=== PATIENT | female | born 2000 | race Hispanic/Latino ===

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

== ENCOUNTER 2019-06-07 22:14 | Observation (INO) | payer MEDICAID ==
[~2019-06-07] VITALS: Ht 157.5 cm; Wt 77.1 kg
[~2019-06-07 22:14] MED LIST: PREN-94 PO
[2019-06-07] MEDS ORDERED: LACTATED RINGERS 1000ML 1,000 ML IV PRN (22:24)
[2019-06-07 22:46] LABS: APPEARANCE,URINE Cloudy (CLEAR); BILIRUBIN,URINE Negative (NEGATIVE); COLOR,URINE Yellow (YELLOW); GLUCOSE, URINE (UA) Negative (NEGATIVE); KETONES,URINE Negative (NEGATIVE); LEUKOCYTE ESTERASE ,URINE Moderate (NEGATIVE); NITRATE,URINE Negative (NEGATIVE); OCCULT BLOOD,URINE Negative (NEGATIVE); PH,URINE 6.5 (5.0-8.0); PROTEIN,URINE Trace mg/dL (NEGATIVE)
[2019-06-07] MEDS: LACTATED RINGERS 1000ML 1,000 ML IV ONE (22:58)
[2019-06-07 23:14] LABS: AMORPHOUS SEDIMENT,UR Few /LPF (None Seen); BACTERIA,URINE Rare /HPF (None Seen); CALCIUM OXALATE CRYSTALS,UR Rare /LPF (None Seen); RBC,URINE None Seen /HPF (0-1); SQUAMOUS EPITHELIAL CELL,UR Many /HPF (0-2)
== END 2019-06-07 23:35 | disposition home or self-care (01) ==
LOC: EDH 22:14 → LDH 22:15
PROVIDERS: ADMIT Obstetrics & Gynecology; ATTEND Obstetrics & Gynecology
DX: O62.9 Abnormality of forces of labor, unspecified (principal); Z3A.23 23 weeks gestation of pregnancy
CPT/HCPCS: 81001; 99284; G0378; J7120; 96360

== ENCOUNTER 2019-09-08 05:53 | Observation (INO) | payer MEDICAID ==
[2019-09-08 07:08] LABS: APPEARANCE,URINE Clear (CLEAR); BILIRUBIN,URINE Negative (NEGATIVE); COLOR,URINE Yellow (YELLOW); GLUCOSE, URINE (UA) Negative (NEGATIVE); KETONES,URINE 15 mg/dL (NEGATIVE); LEUKOCYTE ESTERASE ,URINE Large (NEGATIVE); NITRATE,URINE Negative (NEGATIVE); OCCULT BLOOD,URINE Negative (NEGATIVE); PROTEIN,URINE Negative (NEGATIVE); UROBILINOGEN,URINE 0.2 mg/dL (0.2-1.0)
[2019-09-08 07:35] LABS: BACTERIA,URINE Few /HPF (None Seen); MUCUS,URINE Rare LPF (None Seen); RBC,URINE 0-1 /HPF (0-1); SQUAMOUS EPITHELIAL CELL,UR Rare /HPF (0-2)
[2019-09-08] MEDS ORDERED: CEFTRIAXONE SODIUM 1 GM IVP SCH (08:30)
[2019-09-08] MEDS ORDERED: LACTATED RINGERS 1000ML IV SCH (08:30)
[2019-09-08 08:40] LABS: AMPHET/METH SCREEN,URINE NEGATIVE (NEGATIVE); BARBITURATE SCREEN, URINE NEGATIVE (NEGATIVE); BENZODIAZEPINES SCREEN,URINE NEGATIVE (NEGATIVE); CANNABINOID SCREEN,URINE NEGATIVE (NEGATIVE); COCAINE SCREEN,URINE NEGATIVE (NEGATIVE); OPIATE SCREEN,URINE NEGATIVE (NEGATIVE); PHENCYCLIDINE SCREEN,URINE NEGATIVE (NEGATIVE)
[2019-09-08] MEDS ORDERED: ROPIVACAINE 0.2% 100ML VIAL 100 ML EP SCH (09:00)
[2019-09-08] MEDS ORDERED: EPHEDRINE SULFATE 50 MG/ML AMPULE IVP PRN (09:00)
[2019-09-08] MEDS ORDERED: LACTATED RINGERS 500 ML 500 ML IV PRN (09:00)
[2019-09-08] MEDS ORDERED: NALOXONE HCL 0.4 MG/1 ML ML IV PRN (09:00)
== END 2019-09-08 10:35 | disposition home or self-care (01) ==
LOC: EDH 05:53 → LDH 05:54
PROVIDERS: ADMIT Obstetrics & Gynecology; ATTEND Obstetrics & Gynecology
DX: O26.893 Other specified pregnancy related conditions, third trimester (principal); M54.9 Dorsalgia, unspecified; Z3A.37 37 weeks gestation of pregnancy
CPT/HCPCS: 80305; 81001; 87088; 96374; 99284; G0378 ×4; J0696; J7120 ×2; 96360; 96361

== ENCOUNTER 2019-09-13 02:13 | Observation (INO) | payer MEDICAID ==
[~2019-09-13] VITALS: Ht 160 cm; Wt 90.3 kg
[2019-09-13 02:31] VITALS: BP 124/50
[2019-09-13] MEDS ORDERED: LACTATED RINGERS 1000ML IV ONE (02:31)
[2019-09-13 02:52] LABS: APPEARANCE,URINE Clear (CLEAR); BILIRUBIN,URINE Negative (NEGATIVE); COLOR,URINE Yellow (YELLOW); GLUCOSE, URINE (UA) Negative (NEGATIVE); KETONES,URINE Negative (NEGATIVE); LEUKOCYTE ESTERASE ,URINE Moderate (NEGATIVE); NITRATE,URINE Negative (NEGATIVE); OCCULT BLOOD,URINE Negative (NEGATIVE); PROTEIN,URINE Negative (NEGATIVE)
[2019-09-13 02:59] LABS: AMPHET/METH SCREEN,URINE NEGATIVE (NEGATIVE); BARBITURATE SCREEN, URINE NEGATIVE (NEGATIVE); BENZODIAZEPINES SCREEN,URINE NEGATIVE (NEGATIVE); CANNABINOID SCREEN,URINE NEGATIVE (NEGATIVE); COCAINE SCREEN,URINE NEGATIVE (NEGATIVE); OPIATE SCREEN,URINE NEGATIVE (NEGATIVE); PHENCYCLIDINE SCREEN,URINE NEGATIVE (NEGATIVE)
[2019-09-13 03:14] LABS: BACTERIA,URINE Few /HPF (None Seen); RBC,URINE 0-1 /HPF (0-1)
== END 2019-09-13 04:55 | disposition home or self-care (01) ==
LOC: EDH 02:13 → LDH 02:14
PROVIDERS: ADMIT Internal Medicine; ATTEND Internal Medicine
DX: O60.03 Preterm labor without delivery, third trimester (principal); O62.9 Abnormality of forces of labor, unspecified; Z3A.38 38 weeks gestation of pregnancy
CPT/HCPCS: 80305; 81001; 87088; 99284; G0378 ×2; J7120; 96360; 96361

== ENCOUNTER 2023-12-19 21:38 | Observation (INO) | payer MEDICAID ==
[~2023-12-19] VITALS: Ht 160 cm; Wt 86.7 kg
[2023-12-19 21:41] VITALS: BP 136/71; PULSE 91; RESP 20
[2023-12-19 22:13] LABS: APPEARANCE,URINE CLEAR (CLEAR); BILIRUBIN,URINE NEGATIVE (NEGATIVE); COLOR,URINE LIGHT-YELLOW (YELLOW); GLUCOSE, URINE (UA) NEGATIVE (NEGATIVE); KETONES,URINE NEGATIVE (NEGATIVE); LEUKOCYTE ESTERASE ,URINE 75 Leu/uL (NEGATIVE); NITRATE,URINE NEGATIVE (NEGATIVE); PH,URINE 6.5 (5.0-8.0); PROTEIN,URINE NEGATIVE (NEGATIVE); UROBILINOGEN,URINE 0.2 mg/dL (0.2-1.0)
[2023-12-19 22:14] LABS: ADD UA MICROSCOPIC YES
[2023-12-19 22:17] LABS: MUCUS,URINE RARE LPF (None Seen); SQUAMOUS EPITHELIAL CELL,UR RARE /HPF (0-2)
[2023-12-19] MEDS: LACTATED RINGERS 1000ML 1,000 ML IV SCH (23:30)
[2023-12-20] MEDS ORDERED: LACTATED RINGERS 1000ML 1,000 ML IV SCH (00:30)
== END 2023-12-19 23:36 | disposition home or self-care (01) ==
LOC: EDH 21:38 → LDH 21:55
PROVIDERS: ADMIT Obstetrics & Gynecology; ATTEND Obstetrics & Gynecology
DX: O62.9 Abnormality of forces of labor, unspecified (principal); Z3A.38 38 weeks gestation of pregnancy
CPT/HCPCS: 96360; 87086; 81001; G0378 ×2; G0379; J7120

== ENCOUNTER 2023-12-28 16:32 | Inpatient (IN) | payer MEDICAID ==
[~2023-12-28] VITALS: Ht 157.5 cm; Wt 85.3 kg
[2023-12-28 17:06] LABS: ADD UA MICROSCOPIC YES; APPEARANCE,URINE CLOUDY (CLEAR); BILIRUBIN,URINE NEGATIVE (NEGATIVE); COLOR,URINE YELLOW (YELLOW); GLUCOSE, URINE (UA) NEGATIVE (NEGATIVE); KETONES,URINE 5 mg/dL (NEGATIVE); LEUKOCYTE ESTERASE ,URINE 500 Leu/uL (NEGATIVE); NITRATE,URINE NEGATIVE (NEGATIVE); OCCULT BLOOD,URINE MODERATE (NEGATIVE); PH,URINE 6.5 (5.0-8.0); PROTEIN,URINE 30 mg/dL (NEGATIVE)
[2023-12-28 17:08] LABS: HEMATOCRIT 34.2 % (36-48); MEAN CORPUSCULAR HEMOGLOBIN 27.6 pg (27.0-33.0); MEAN CORPUSCULAR HGB CONC 31.3 g/dL (32.0-36.0); MEAN CORPUSCULAR VOLUME 88.1 fL (79-99); RED BLOOD CELL COUNT(AUTO) 3.88 MIL/uL (4.00-5.50); RED CELL DISTRIBUTION WIDTH 14.1 % (11.0-15.5); WHITE BLOOD COUNT (AUTO) 9.1 K/uL (4.8-10.8)
[2023-12-28 17:09] LABS: BACTERIA,URINE RARE /HPF (None Seen); MUCUS,URINE RARE LPF (None Seen); SQUAMOUS EPITHELIAL CELL,UR FEW /HPF (0-2); WBC,URINE 26-50 /HPF (0-1)
[2023-12-28] MEDS: LACTATED RINGERS 1000ML 1,000 ML IV PRN (17:39)
[2023-12-28] MEDS: PROMETHAZINE HCL 25 MG/ML 1ML AMPULE IM ONE ×2 (18:22→18:46)
[2023-12-28] MEDS: MEPERIDINE-PF 50 MG/ML SYG IVP ONE (18:22)
[2023-12-28] MEDS: MEPERIDINE-PF 50 MG/ML SYG ONE (18:46)
[2023-12-28] MEDS: OXYTOCIN-LR 30 UNITS/500ML 500 ML IV SCH ×2 (20:00→21:23)
[2023-12-28] MEDS ORDERED: LIDOCAINE HCL 1% 10 ML VIAL ONE (21:05)
[2023-12-28] MEDS ORDERED: LANOLIN 30GM OINTMENT TP PRN (22:00)
[2023-12-28] MEDS ORDERED: BENZOCAINE/LANOLIN/ALOE VERA 60 ML AEROSOL TP PRN (22:00)
[2023-12-28] MEDS ORDERED: acetaMINOPHEN WITH coDEINE 1 TAB TAB PO PRN (22:00)
[2023-12-28] MEDS ORDERED: acetaMINOPHEN 325 MG TAB PO PRN (22:00)
[2023-12-28] MEDS ORDERED: WITCH HAZEL 1 PAD TP PRN (22:00)
[2023-12-28 23:20] VITALS: BP 137/76; PULSE 89; RESP 20; TEMP 98.5
[2023-12-29 03:40] VITALS: BP 134/55; PULSE 70; RESP 20; TEMP 98.4
[2023-12-29] MEDS: DIPH,PERTUSS(ACELL),TET VAC/PF 0.5 ML VIAL IM PRN (06:23)
[2023-12-29 06:36] LABS: HEMATOCRIT 30.8 % (36-48); MEAN CORPUSCULAR HEMOGLOBIN 26.9 pg (27.0-33.0); MEAN CORPUSCULAR HGB CONC 30.8 g/dL (32.0-36.0); MEAN CORPUSCULAR VOLUME 87.3 fL (79-99); PLATELET COUNT (AUTO) 245 K/uL (130-400); RED BLOOD CELL COUNT(AUTO) 3.53 MIL/uL (4.00-5.50); RED CELL DISTRIBUTION WIDTH 14.2 % (11.0-15.5); WHITE BLOOD COUNT (AUTO) 10.2 K/uL (4.8-10.8)
[2023-12-29 07:15] VITALS: BP 113/52; PULSE 66; RESP 18; TEMP 98.1
[2023-12-29] MEDS: doCUSate SODIUM 100 MG CAP PO SCH (09:26)
[2023-12-29] MEDS: IBUPROFEN 600 MG TABLET PO PRN (09:27)
[2023-12-29] MEDS: guaiFENesin-DM 200/20MG 10ML PO PRN (10:14)
[2023-12-29 11:20] VITALS: BP 122/57; PULSE 60; RESP 20; TEMP 98
[2023-12-29 15:15] VITALS: BP 127/74; PULSE 74; RESP 20; TEMP 97.9
[2023-12-29 19:42] VITALS: BP 134/75; PULSE 76; RESP 18; TEMP 98.1
[2023-12-29 23:20] VITALS: BP 144/75; PULSE 77; RESP 18; TEMP 98.1
[2023-12-30 03:53] VITALS: BP 141/66; PULSE 74; RESP 18; TEMP 98.4
[2023-12-30 08:10] VITALS: BP 134/65; PULSE 65; RESP 18; TEMP 97.5
[2023-12-30 12:08] VITALS: BP 133/78; PULSE 74; RESP 17; TEMP 97.6
== END 2023-12-30 14:27 | disposition home or self-care (01) | DRG 560 ==
LOC: EDH 16:32 → LDH 16:33 → OBSVTOIN 16:33 → WSH 23:22
PROVIDERS: ADMIT Obstetrics & Gynecology; ATTEND Obstetrics & Gynecology
PROC: 10E0XZZ Delivery of Products of Conception, External Approach (ICD-10-PCS; principal; 2023-12-28)
PROC: 10907ZC Drainage of Amniotic Fluid, Therapeutic from Products of Conception, Via Natural or Artificial Opening (ICD-10-PCS; 2023-12-28)
DX: O80 Encounter for full-term uncomplicated delivery (principal); Z37.0 Single live birth; Z3A.39 39 weeks gestation of pregnancy
CPT/HCPCS: 36415; 81001; 85027; 86592; 86850; 86900; 86901; 87086; 87340; 90715; G0378; J2175; J2550; J3490

== ENCOUNTER 2024-09-06 21:55 | Emergency (ER) | payer MEDICAID ==
[~2024-09-06] VITALS: Ht 160 cm; Wt 68.0 kg
--- NOTE | 2024-09-06 21:57 | NUR ---
UA CUP PROVIDED
[2024-09-06 22:19] LABS: BASOPHILS # (AUTO) 0.07 K/uL (0.00-0.20); BASOPHILS % (AUTO) 0.6 % (0.0-5.0); EOSINOPHILS # (AUTO) 0.12 K/uL (0.00-0.70); HEMATOCRIT 37.6 % (36-48); IMMATURE GRANULOCYTE ABSOLUTE 0.04 K/uL (0-1); LYMPHOCYTES # (AUTO) 2.9 K/uL (1.0-4.8); LYMPHOCYTES % (AUTO) 23.6 % (21.0-51.0); MEAN CORPUSCULAR HEMOGLOBIN 31.5 pg (27.0-33.0); MEAN CORPUSCULAR HGB CONC 34.3 g/dL (32.0-36.0); MEAN CORPUSCULAR VOLUME 91.7 fL (79-99); MONOCYTES # (AUTO) 0.7 K/uL (0.1-1.0); MONOCYTES % (AUTO) 5.8 % (3.0-13.0); NEUTROPHILS # (AUTO) 8.6 K/uL (1.8-7.7); NEUTROPHILS % (AUTO) 68.7 % (40.0-77.0); PLATELET COUNT (AUTO) 391 K/uL (130-400); RED CELL DISTRIBUTION WIDTH 12.7 % (11.0-15.5); WHITE BLOOD COUNT (AUTO) 12.5 K/uL (4.8-10.8)
[2024-09-06 22:27] LABS: CREATININE 0.5 mg/dL (0.5-1.0); POTASSIUM 4.2 mmol/L (3.5-5.1)
--- NOTE | 2024-09-06 22:31 | ERN ---
ED Note History of Present Illness Stated Complaint: ABD PAIN, VOMITING, LMP 07/05/24 Chief Complaint: Abdominal Pain Time Seen by MD: 21:57 Time Seen by Midlevel: 22:00 Dictation: 24-year-old female coming in with complaints of vomiting for three days in lower abdominal pain. Patient denies having any fever, diarrhea, hematuria. Patient states LMP is 07/05/2024, states she does have possibly be but has not verified and has been taking it at home test. Denies having any vaginal bleeding or vaginal discharge. Allergies: Coded Allergies: No Known Drug Allergies (Unverified Allergy, Unknown, 12/19/23) Home Meds Reported Medications #103/Iron Fumarate/FA ( Tablet) 1 Each Tablet, 1 EACH PO DAILY, TAB 09/28/18 Past Medical History Past Medical History: No Pertinent History Surgical History: None LMP: Jul 05, 2024 : 6 Para: 6 Aborts: 0 Review of System Dictation Constitutional: Negative for fever,chills, and weight loss Eyes: Negative for injury, pain,redness, and discharge ENT: Negative for injury,pain or swelling Cardiovascular: Negative for chest pain, palpitations, and edema Respiratory: Negative for shortness of breath, cough, and wheezing, Abdomen/GI: Complaining of generalized abdominal pain, nausea and vomiting Back: Negative for injury and pain : Negative for injury, bleeding and discharge MS/Extremity: Negative for injury and deformity Skin: Negative for rash, and discoloration Neuro: Negative for headache, weakness, numbness, tingling, and seizure Psych: Negative for suicide ideation, homicidal ideation, and hallucinations Review of Systems: was completed Initial Vital Sign VS Vital Signs Date Time Temp Pulse Resp B/P (MAP) Pulse Ox O2 Delivery O2 Flow Rate FiO2 09/06/24 21:57 99.0 74 16 128/82 100 Room Air 09/06/24 22:14 0 21 Physical Exam Dictation General: awake, alert, NAD Head/Face: Normocephalic, atraumatic Eyes: PERRL, EOMI, vision at baseline ENT: oral cavity clear, TMs clear, no signs of infection Neck: Trachea midline, supple, no nuchal rigidity Cardiovascular: RRR, normal S1/S2, No MRGs, no JVD Respiratory: CTAB, no respiratory distress, No rales or wheezes Abdomen: Soft, non-tender, non-distended, normal bowel sounds, no guarding or rebound. Skin: Warm, dry, normal turgor, no rash MS/Extremity: Pulses equal, no cyanosis, neurovascular intact, FROM Neuro: COAx4, GCS 15, strength 5/5, CN 2-12 intact, normal cerebellar exam, normal gait, Psych: Normal behavior, mood, and affect normal Results (Laboratory/Radiology) Laboratory/Radiology Laboratory Tests Test 09/06/24 22:04 09/06/24 22:06 White Blood Count 12.5 K/uL (4.8-10.8) H Red Blood Count 4.10 MIL/uL (4.00-5.50) Hemoglobin 12.9 g/dL (12.0-16.0) Hematocrit 37.6 % (36-48) Mean Corpuscular Volume 91.7 fL (79-99) Mean Corpuscular Hemoglobin 31.5 pg (27.0-33.0) Mean Corpuscular Hemoglobin Concent 34.3 g/dL (32.0-36.0) Red Cell Distribution Width 12.7 % (11.0-15.5) Platelet Count 391 K/uL (130-400) Mean Platelet Volume 10.2 fL (7.5-10.5) Immature Granulocyte % (Auto) 0.3 % (0-1) Neutrophils (%) (Auto) 68.7 % (40.0-77.0) Lymphocytes (%) (Auto) 23.6 % (21.0-51.0) Monocytes (%) (Auto) 5.8 % (3.0-13.0) Eosinophils (%) (Auto) 1.0 % (0.0-8.0) Basophils (%) (Auto) 0.6 % (0.0-5.0) Neutrophils # (Auto) 8.6 K/uL (1.8-7.7) H Lymphocytes # (Auto) 2.9 K/uL (1.0-4.8) Monocytes # (Auto) 0.7 K/uL (0.1-1.0) Eosinophils # (Auto) 0.12 K/uL (0.00-0.70) Basophils # (Auto) 0.07 K/uL (0.00-0.20) Absolute Immature Granulocyte (auto 0.04 K/uL (0-1) Nucleated Red Blood Cells 0.0 % (0.0-0.19) Sodium Level 137 mmol/L (136-145) Potassium Level 4.2 mmol/L (3.5-5.1) Chloride Level 102 mmol/L (101-111) Carbon Dioxide Level 29 mmol/L (21-32) Blood Urea Nitrogen 6 mg/dL (7-18) L Creatinine 0.5 mg/dL (0.5-1.0) Glomerular Filtration Rate Calc 133 mL/min (>90) Random Glucose 86 mg/dL (70-105) Total Calcium 9.4 mg/dL (8.5-10.1) Lipase 61 U/L (16-77) Urine Color COLORLESS (YELLOW) Urine Appearance CLEAR (CLEAR) Urine pH 6.5 (5.0-8.0) Urine Specific [place] 1.000 (1.001-1.031) Urine Protein NEGATIVE mg/dL (NEGATIVE) Urine Glucose (UA) NEGATIVE mg/dL (NEGATIVE) Urine Ketones NEGATIVE mg/dL (NEGATIVE) Urine Occult Blood NEGATIVE (NEGATIVE) Urine Nitrate NEGATIVE (NEGATIVE) Urine Bilirubin NEGATIVE mg/dL (NEGATIVE) Urine Urobilinogen 0.2 mg/dL (0.2-1.0) Urine Leukocyte Esterase NEGATIVE Becki/uL Urine HCG, Qualitative POSITIVE (NEGATIVE) H Labs Reviewed?: Yes ED Course ED Course Orders Procedure Category Date Status Time Vital Signs Per CPOE 09/06/24 Transmitted Routine 21:57 Saline Lock Iv CPOE 09/06/24 Transmitted 21:57 Cbc With Differential LAB 09/06/24 Complete 21:57 Lipase LAB 09/06/24 Complete 21:57 Urinalysis Profile LAB 09/06/24 Complete 21:57 Basic Metabolic Panel LAB 09/06/24 Complete 21:57 ,Urine Test LAB 09/06/24 Complete 21:57 Hcg,Quantitative LAB 09/06/24 In Process 23:08 Us Ob <14 Weeks US 09/06/24 Taken 23:08 Vital Signs Date Time Temp Pulse Resp B/P (MAP) Pulse Ox O2 Delivery O2 Flow Rate FiO2 09/06/24 22:14 98.8 66 18 131/71 100 Room Air* 0 21 09/06/24 21:57 99.0 74 16 128/82 100 Room Air Medical Decision Making MDM MDM: 24-year-old female coming in with complaints of vomiting for three days in lower abdominal pain. Patient denies having any fever, diarrhea, hematuria. Patient states LMP is 07/05/2024, states she does have possibly be but has not verified and has been taking it at home test. Denies having any vaginal bleeding or vaginal discharge. Ca unremarkable, no leukocytosis no anemia, no thrombocytopenia. Chemistry unremarkable. UA shows no evidence of urinary tract infection patient has a positive test. When I went to go speak to the patient had told her that she was patient states this is her 7th , and revealed that she had some vaginal bleeding today. Ultrasound ordered at this time. Ultrasound reads IUP seen with a heart rate of 170, yolk sac seen. Cul-de-sac within normal range. Estimated gestational age of eight weeks and two days. Discussed with the patient. Discussed this she needs to follow up with the OBGYN and return to the hospital with OBGYN services if worsening symptoms. Differential diagnosis: Gastroenteritis, , threatened . Rationale: Tests considered and ordered secondary to shared decision making include: Previous outside records reviewed: Old ER visits. Risk of complication and/or morbidity or mortality of patient management: None Medications-Per medication reconciliation Need for hospitalization: Patient does not meet criteria for hospitalization. Need for emergency major/minor surgery: No There are no social concerns with this patient. Prescription drug management Prescriptions will include symptomatic care Patient's prior external medical records from other ER visits were reviewed by me as indicated. Prior testing and results from previous visits were reviewed. Prior tests were taken into account with medical decision making and resource utilization, independent historian/historians were used to obtain complete medical history. I independently interpreted the test that were performed, results were reviewed by me and considered findings on radiology if ordered. Medical management and examination interpretation discussions were had by me with other qualified healthcare professionals as indicated for the patient's care. DX & DISP Disposition: Discharge Departure Impression: Primary Impression: Additional Impression: Vomiting Condition: Stable Additional Instructions: Your ultrasound shows UR eight weeks in two days . Your baby's heart rate is 170. Please follow up with an OBGYN for further evaluation. If you have any worsening symptoms please return to the ER that has obstetric services. Dehydrated and avoid any sugary drinks. Referrals: SELF,REFERRAL (PCP) Time of Disposition: 23:53 I have reviewed the case, and I agree with, Diagnosis and Plan SYEDA RIOS NP September 06, 2024 22:31
[2024-09-06 22:41] LABS: APPEARANCE,URINE CLEAR (CLEAR); BILIRUBIN,URINE NEGATIVE (NEGATIVE); COLOR,URINE COLORLESS (YELLOW); GLUCOSE, URINE (UA) NEGATIVE (NEGATIVE); KETONES,URINE NEGATIVE (NEGATIVE); LEUKOCYTE ESTERASE ,URINE NEGATIVE Leu/uL (NEGATIVE); NITRATE,URINE NEGATIVE (NEGATIVE); OCCULT BLOOD,URINE NEGATIVE (NEGATIVE); PH,URINE 6.5 (5.0-8.0); PROTEIN,URINE NEGATIVE (NEGATIVE); UROBILINOGEN,URINE 0.2 mg/dL (0.2-1.0)
[2024-09-06 22:43] LABS: HCG,QUALITATIVE URINE POSITIVE (NEGATIVE)
[2024-09-06 22:44] LABS: ADD UA MICROSCOPIC NO
[2024-09-07 00:15] VITALS: BP 126/74; PULSE 62; RESP 18; TEMP 98.6; O2SAT 100
--- NOTE | 2024-09-07 08:50 | HMCIMG ---
TRANSABDOMINAL AND TRANSVAGINAL PELVIC ULTRASOUND; DATED 09/07/2024 8:47 AM CDT. CLINICAL INDICATION : lower abdominal pain, just found out FINDINGS: Single live intrauterine gestation in the fundal endometrium. No perigestational sac hematoma identified. CRL measures 1.83 cm , corresponds to 8 weeks 2 days. cardiac activity and heart rate is 170 beats per minute. The uterus is anteverted with normal shape. The myometrium is homogeneous and there is no evidence of focal or diffuse lesions. Both ovaries appear normal with normal flow on color and Spectral Doppler. No adnexal masses. No free fluid or collections. Urinary bladder appears normal. IMPRESSION: 1. Single live intrauterine gestation with parameters as noted above.
== END 2024-09-07 00:16 | disposition home or self-care (01) ==
LOC: EDH 21:55
DX: O21.9 Vomiting of pregnancy, unspecified (principal); O26.891 Other specified pregnancy related conditions, first trimester; R10.30 Lower abdominal pain, unspecified; R10.2 Pelvic and perineal pain; Z3A.08 8 weeks gestation of pregnancy; Z79.899 Other long term (current) drug therapy
CPT/HCPCS: 36415; 76801; 80048; 81003; 81025; 83690; 84702; 85025; 99284